=== PATIENT | male | born 1955 | race Caucasian/White ===

== ENCOUNTER 2017-08-23 17:06 | Emergency (ER) | payer OTHER ==
[2017-08-23 17:06] VITALS: BMI 29.7
[2017-08-23 17:30] VITALS: BP 111/71; PULSE 75; RESP 16; TEMP 98.5; O2SAT 95
[2017-08-23 19:01] LABS: BASO # 0.1 K/uL (0.0-0.2); BASO % 1.1 % (0.0-2.0); EOS # 0.2 K/uL (0.0-0.7); EOS % 2.2 % (0.0-4.0); HEMOGLOBIN 13.5 g/dL (12.0-18.0); LYMPH # 2.4 K/uL (1.0-4.3); MEAN CELL VOLUME 85.4 fl (80.0-94.0); MEAN CORPUSCULAR HEMOGLOBIN 29.4 pg (27.0-31.0); MEAN CORPUSCULAR HGB CONC 34.5 g/dL (33.0-37.0); MEAN PLATELET VOLUME 9.4 fl (7.2-11.7); MONO # 0.6 K/uL (0.0-0.8); MONO % 8.3 % (0.0-10.0); NEUT % 55.4 % (50.0-75.0); RBC 4.57 Mil/uL (4.40-5.90); RED CELL DISTRIBUTION WIDTH 13.2 % (11.5-14.5); WHITE BLOOD COUNT 7.3 K/uL (4.8-10.8)
[2017-08-23 19:19] LABS: ALBUMIN 3.4 g/dL (3.5-5.0); ALT/SGPT 26 U/L (21-72); AST/SGOT 37 U/L (17-59); BLOOD UREA NITROGEN 27 mg/dl (9-20); CALCIUM 8.2 mg/dL (8.4-10.2); GFR AFRICAN-AMERICAN > 60; GFR NON-AFRICAN AMERICAN > 60
--- NOTE | 2017-08-23 19:50 | ED PDOC ---
Lower Extremity Pain/Injury Time Seen by Provider: 08/23/17 17:40 Chief Complaint (Nursing): Lower Extremity Problem/Injury Chief Complaint (Provider): Right Leg Pain History Per: Patient History/Exam Limitations: no limitations Onset/Duration Of Symptoms: Other (1 month) Additional Complaint(s): 61 year old male presents to the ED complaining of tender skin abnormality of right lateral heel onset 1 month. Patient was unable to walk yesterday which is why he came today. He took ibuprofen and felt better this morning. Pt states he noticed yellow drainage from the site yesterday. PMD: No Family Provider Pt denies PMHx but has not seen PMD in 4 years. Past Medical History Reviewed: Historical Data, Nursing Documentation, Vital Signs Vital Signs: Last Vital Signs Temp 98.5 F 08/23/17 17:22 Pulse 75 08/23/17 17:22 Resp 16 08/23/17 17:22 BP 111/71 08/23/17 17:22 Pulse Ox 95 08/23/17 17:22 - Medical History PMH: No Chronic Diseases Denies: Chronic Kidney Disease - Surgical History Surgical History: No Surg Hx - Family History Family History: States: Hypertension - Living Arrangements Living Arrangements: With Family - Social History Current smoker - smoking cessation education provided: No - Home Medications Home Medications: Ambulatory Orders Medication Instructions Recorded Aspirin 81 mg PO DAILY 02/18/14 Sulfamethoxazole/Trimethoprim 1 each PO BID #20 tablet 08/23/17 [Bactrim 400-80 mg Tablet] - Allergies Allergies/Adverse Reactions: Allergies Allergy/AdvReac Type Severity Reaction Status Date / Time Penicillins Allergy RASH Verified 08/23/17 17:30 Review of Systems ROS Statement: Except As Marked, All Systems Reviewed And Found Negative Musculoskeletal: Positive for: Foot Pain (right) Physical Exam - Reviewed Nursing Documentation Reviewed: Yes Vital Signs Reviewed: Yes - Physical Exam Appears: Positive for: Non-toxic Head Exam: Positive for: ATRAUMATIC, NORMAL INSPECTION, NORMOCEPHALIC Skin: Positive for: Normal Color, Warm, Dry Eye Exam: Positive for: Normal appearance Neck: Positive for: Normal Respiratory: Negative for: Decreased Breath Sounds Extremity: Positive for: Normal ROM, Tenderness (plaque to lateral superior calcaneus, indurated to palpation). Negative for: Other (drainage) Neurologic/Psych: Positive for: Alert, Oriented (x3) - Laboratory Results Result Diagrams: 08/23/17 18:50 08/23/17 18:50 - ECG O2 Sat by Pulse Oximetry: 95 (RA) Pulse Ox Interpretation: Normal Medical Decision Making Medical Decision Making: Time: 1814 Initial Plan: --CMP --CBC w/ Differential --Right Foot 3 Views labs and x-ray present no abnormalities. Patient will be discharged and follow- up at clinic. Scribe Attestation: Documented by Venita Campos, acting as a scribe for Elvira Henry PA-C Provider Scribe Attestation: All medical record entries made by the Scribe were at my direction and personally dictated by me. I have reviewed the chart and agree that the record accurately reflects my personal performance of the history, physical exam, medical decision making, and the department course for this patient. I have also personally directed, reviewed, and agree with the discharge instructions and disposition. Disposition - Clinical Impression Clinical Impression: Abnormality, skin - Patient ED Disposition Is Patient to be Admitted: No - Disposition Referrals: [facility] [Outside] Podiatry Clinic [Outside] Disposition: Routine/Home Disposition Time: 20:20 Condition: STABLE Additional Instructions: Please follow-up with the [facility] and Podiatry clinic for further evaluation. Prescriptions: Sulfamethoxazole/Trimethoprim [Bactrim 400-80 mg Tablet] 1 each PO BID #20 tablet Instructions: Wound Care (DC) Forms: [employer] (Guatemalan), [facility] ED School/Work Excuse
--- NOTE | 2017-08-24 08:30 | RAD ---
PROCEDURE: Right Foot Radiographs. HISTORY: lesion, right later heel COMPARISON: None. FINDINGS: BONES: No acute fracture. Bipartite medial sesamoid. Tiny os peroneum. JOINTS: Unremarkable. SOFT TISSUES: Normal. OTHER FINDINGS: Inferior plantar calcaneal spur. IMPRESSION: No demonstrated fracture or dislocation.
== END 2017-08-23 20:37 | disposition home or self-care (01) ==
LOC: H.ER 17:06
DX: M79.604 Pain in right leg (principal); Z79.82 Long term (current) use of aspirin; Z88.0 Allergy status to penicillin

== ENCOUNTER 2017-11-08 10:21 | Emergency (ER) | payer OTHER ==
[2017-11-08 10:27] VITALS: TEMP 97.1
[2017-11-08 10:28] VITALS: BMI 32.3
[2017-11-08] MEDS ORDERED: Tdap Vaccine 0.5 ml Vial (10-64 yrs) IM ONE ×2 (11:12→11:24)
[2017-11-08 11:32] LABS: BASO % 0.3 % (0.0-2.0); EOS # 0.2 K/uL (0.0-0.7); EOS % 2.4 % (0.0-4.0); HEMOGLOBIN 14.4 g/dL (12.0-18.0); LYMPH # 2.2 K/uL (1.0-4.3); LYMPH % 34.3 % (20.0-40.0); MEAN CELL VOLUME 85.2 fl (80.0-94.0); MEAN CORPUSCULAR HEMOGLOBIN 29.3 pg (27.0-31.0); MEAN CORPUSCULAR HGB CONC 34.3 g/dL (33.0-37.0); MEAN PLATELET VOLUME 9.1 fl (7.2-11.7); MONO # 0.5 K/uL (0.0-0.8); MONO % 8.4 % (0.0-10.0); NEUT # 3.4 K/uL (1.8-7.0); NEUT % 54.6 % (50.0-75.0); NRBC % 0.1 % (0.0-0.0); RBC 4.91 Mil/uL (4.40-5.90); RED CELL DISTRIBUTION WIDTH 13.3 % (11.5-14.5); WHITE BLOOD COUNT 6.3 K/uL (4.8-10.8)
[2017-11-08 11:38] LABS: PROTHROMBIN TIME 10.8 Seconds (9.8-13.1)
[2017-11-08 11:41] LABS: PARTIAL THROMBOPLASTIN TIME 32.6 Seconds (25.6-37.1)
[2017-11-08 11:43] LABS: ALB/GLOB RATIO 1.1 (1.0-2.1); ALBUMIN 4.2 g/dL (3.5-5.0); ALT/SGPT 13 U/L (21-72); AST/SGOT 24 U/L (17-59); BLOOD UREA NITROGEN 28 mg/dl (9-20); CALCIUM 8.6 mg/dL (8.4-10.2); GFR AFRICAN-AMERICAN > 60; GFR NON-AFRICAN AMERICAN > 60
[2017-11-08 11:51] LABS: B-TYPE NATRIURETIC PEPTIDE 60.9 pg/ml (0-900)
--- NOTE | 2017-11-08 12:18 | ED PDOC ---
Lower Extremity Pain/Injury Time Seen by Provider: 11/08/17 10:44 Chief Complaint (Nursing): Pain, Chronic Chief Complaint (Provider): Right calf and foot pain History Per: Patient History/Exam Limitations: no limitations Onset/Duration Of Symptoms: Days (x1 month) Current Symptoms Are (Timing): Still Present Additional Complaint(s): 61yo male, comes to ER for evaluation of pain to his right ankle and calf x 1 month. He states he had a vein ligation to his right lower extremity 5 years ago and is unsure if his current symptoms are related to that. He reports some swelling to the right lower extremity, but denies any fever, chills, trauma or injuries. He also denies any prolonged immobilities, chest pain, shortness of breath, cough or abdominal pain. He states his tetanus is not up to date. PMD: None provided Past Medical History Reviewed: Historical Data, Nursing Documentation, Vital Signs Vital Signs: Last Vital Signs Temp 97.1 F L 11/08/17 10:26 Pulse 64 11/08/17 10:26 Resp BP 137/81 11/08/17 10:26 Pulse Ox 98 11/08/17 10:26 - Medical History PMH: No Chronic Diseases - Surgical History Other surgeries: vein ligation RLE - Family History Family History: States: Hypertension - Social History Current smoker - smoking cessation education provided: No Alcohol: None Drugs: Denies - Immunization History Hx Tetanus Toxoid Vaccination: No - Home Medications Home Medications: Ambulatory Orders Medication Instructions Recorded Aspirin 81 mg PO DAILY 02/18/14 Sulfamethoxazole/Trimethoprim 1 each PO BID #20 tablet 08/23/17 [Bactrim 400-80 mg Tablet] Levofloxacin [Levaquin] 500 mg PO DAILY #4 tablet 11/08/17 Silver Sulfadiazine 1% [Silver 1 applic TOP BID #1 jar 11/08/17 Sulfadiazine] - Allergies Allergies/Adverse Reactions: Allergies Allergy/AdvReac Type Severity Reaction Status Date / Time Penicillins Allergy RASH Verified 08/23/17 17:30 Review of Systems ROS Statement: Except As Marked, All Systems Reviewed And Found Negative Constitutional: Negative for: Fever, Chills Cardiovascular: Negative for: Chest Pain Respiratory: Negative for: Cough, Shortness of Breath Musculoskeletal: Positive for: Leg Pain (right ankle and calf pain) Neurological: Negative for: Weakness, Numbness Physical Exam - Reviewed Nursing Documentation Reviewed: Yes Vital Signs Reviewed: Yes - Physical Exam Appears: Positive for: Well, Non-toxic, No Acute Distress Head Exam: Positive for: ATRAUMATIC, NORMOCEPHALIC Skin: Positive for: Warm, Dry Eye Exam: Positive for: EOMI ENT: Positive for: Other (Mucus membranes moist. Airway patent, (-) stridor.) Neck: Positive for: Painless ROM, Supple Cardiovascular/Chest: Positive for: Regular Rate, Rhythm. Negative for: Tachycardia Respiratory: Positive for: Normal Breath Sounds. Negative for: Decreased Breath Sounds, Accessory Muscle Use, Crackles, Rales, Wheezing, Respiratory Distress Pulses-Dorsalis Pedis (L): 2+ Pulses-Dorsalis Pedis (R): 2+ Pulses-Post. Tibialis (L): 2+ Pulses-Post. Tibialis (R): 2+ Back: Negative for: Vertebral Tenderness Extremity: Positive for: Normal ROM (FROM right knee, ankle, and foot), Pedal Edema (2+ pitting edema to right ankle and foot), Calf Tenderness (right calf tenderness (-)warmth), Capillary Refill (intact), Other (+ venous stasis changes right lower extremity; [id number] pressure ulcer to lateral right ankle, inferior to lateral malleolus with mild tenderness, no erythema or drainage; 1x1cm scabbed lesion to medical right mid calf.). Negative for: Deformity Neurologic/Psych: Positive for: Alert, Oriented (x3), Gait (ambulatory in ER). Negative for: Aphasia, Facial Droop - Laboratory Results Result Diagrams: 11/08/17 11:20 11/08/17 11:20 - ECG O2 Sat by Pulse Oximetry: 98 (RA) Pulse Ox Interpretation: Normal Medical Decision Making Medical Decision Making: Impression: Right lower extremity pain, r/o DVT Plan: -- Labs -- IV access -- Toradol 30mg IVP -- Tetanus booster IM -- US Duplex RLE -- Podiatry consult 1220 Labs reviewed. CBC unremarkable. H&H stable. No elevation of WBCs. Coag profile WNL. BNP: 60.9. CMP grossly normal. Pending podiatry consult, discussed with resident Yareli Huynh, who recommends U/S evaluation. Patient resting comfortably on re-evaluation with no additional complaints. 1339 U/S reviewed, radiology report follows US RLE FINDINGS: COMMON FEMORAL VEIN: Unremarkable. SUPERFICIAL FEMORAL VEIN: Unremarkable. POPLITEAL VEIN: Unremarkable. POSTERIOR TIBIAL VEIN: Unremarkable. OTHER FINDINGS: Several of right-sided inguinal lymph nodes are present. IMPRESSION: No evidence of deep venous thrombosis in the right lower extremity. 1350 Podiatry at bedside. See consult note. 1420 Tylenol 650mg PO ordered for additional pain control. Pending podiatry disposition. 1540 Per discussion with podiatry, silvadene dressings to be placed to wounds. Patient to be treated with Levaquin PO QD x5 days. Levaquin PO and Silvadene topical ordered. Patient to follow up in podiatry clinic. On re-evaluation, patient reports improvement of symptoms. On exam, patient remains AAOx3, in no acute distress. Lungs clear to auscultation, cardiac RRR, repeat neuro exam shows no focal findings. VSS, stable for discharge. Lab/Diagnostic results d/w the patient in great detail. Diagnosis of acute ankle and calf pain, PVD, cellulitis d/w the patient. Based on history, exam and diagnostic results, plan will be for outpatient follow up. Patient instructed to follow-up with pmd / referral provided / the clinic in 1- 2 days without fail. Advised to take medication as prescribed. Return to the emergency room at any time for any new or worsening symptoms. Patient states he fully agrees with and understands discharge instructions. States that he agrees with the plan and disposition. Verbalized and repeated discharge instructions and plan. I have given the patient opportunity to ask any additional questions. Scribe Attestation: Documented by Esperanza Triana, acting as a scribe for JAHAIRA Carter. Provider Scribe Attestation: All medical record entries made by the Scribe were at my direction and personally dictated by me. I have reviewed the chart and agree that the record accurately reflects my personal performance of the history, physical exam, medical decision making, and the department course for this patient. I have also personally directed, reviewed, and agree with the discharge instructions and disposition. Disposition - Clinical Impression Clinical Impression: PVD (peripheral vascular disease), Ankle pain, Calf pain, Ulcer of lower extremity, Cellulitis - Patient ED Disposition Is Patient to be Admitted: No Counseled Patient/Family Regarding: Studies Performed, Diagnosis, Need For Followup, Rx Given - Disposition Referrals: Podiatry Clinic [Outside] Disposition: Routine/Home Disposition Time: 16:03 Condition: STABLE Additional Instructions: FOLLOW UP WITH PODIATRY. TAKE ANTIBIOTICS UNTIL COMPLETE The emergency medical care you received today was directed at your acute symptoms. If you were prescribed any medication, please fill it and take as directed. It may take several days for your symptoms to resolve. Return to the Emergency Department if your symptoms worsen, do not improve, or if you have any other problems. Please contact your doctor in 2 days for re-evaluation and follow up / or call one of the physicians/clinics you have been referred to that are listed on the Patient Visit Information form that is included in your discharge packet. Bring any paperwork you were given at discharge with you along with any medications you are taking to your follow up visit. Our treatment cannot replace ongoing medical care by a primary care provider (PCP) outside of the emergency department. Prescriptions: Levofloxacin [Levaquin] 500 mg PO DAILY #4 tablet Silver Sulfadiazine 1% [Silver Sulfadiazine] 1 applic TOP BID #1 jar Instructions: Peripheral Vascular (Arterial) Disease (DC), Wound Care, Cellulitis and Erysipelas (Skin Infections) Forms: [employer] (Maori), [facility] ED School/Work Excuse Print Language: CHINESE - POA Present On Arrival: None Results - Lab Results Lab Results: 11/08/17 11/08/17 11/08/17 11:25 11:20 11:20 WBC 6.3 RBC 4.91 Hgb 14.4 Hct 41.8 MCV 85.2 MCH 29.3 MCHC 34.3 RDW 13.3 Plt Count 155 MPV 9.1 Neut % (Auto) 54.6 Lymph % (Auto) 34.3 Hinds % (Auto) 8.4 Eos % (Auto) 2.4 Baso % (Auto) 0.3 Neut # (Auto) 3.4 Lymph # (Auto) 2.2 Hind[place] # (Auto) 0.5 Eos # (Auto) 0.2 Baso # (Auto) 0.0 PT 10.8 INR 1.0 APTT 32.6 Sodium Potassium Chloride Carbon Dioxide Anion Gap BUN Creatinine Est GFR ( Amer) Est GFR (Non-Af Amer) POC Glucose (mg/dL) 115 H Random Glucose Calcium Total Bilirubin AST ALT Alkaline Phosphatase NT-Pro-B Natriuret Pep Total Protein Albumin Globulin Albumin/Globulin Ratio 11/08/17 11:20 WBC RBC Hgb Hct MCV MCH MCHC RDW Plt Count MPV Neut % (Auto) Lymph % (Auto) Hind[place] % (Auto) Eos % (Auto) Baso % (Auto) Neut # (Auto) Lymph # (Auto) Hinds # (Auto) Eos # (Auto) Baso # (Auto) PT INR APTT Sodium 146 Potassium 4.3 Chloride 108 H Carbon Dioxide 29 Anion Gap 13 BUN 28 H Creatinine 0.7 L Est GFR ( Amer) > 60 Est GFR (Non-Af Amer) > 60 POC Glucose (mg/dL) Random Glucose 113 H Calcium 8.6 Total Bilirubin 0.9 AST 24 ALT 13 L D Alkaline Phosphatase 101 NT-Pro-B Natriuret Pep 60.9 Total Protein 8.0 Albumin 4.2 Globulin 3.7 Albumin/Globulin Ratio 1.1
--- NOTE | 2017-11-08 13:19 | US ---
Date of service: 11/08/2017 PROCEDURE: Right lower extremity venous duplex Doppler. HISTORY: edema, r/o dvt COMPARISON: None available. TECHNIQUE: Common femoral, superficial femoral, popliteal and posterior tibial veins were evaluated. Flow was assessed with color Doppler, compressibility, assessment of phasic flow and augmentation response. FINDINGS: COMMON FEMORAL VEIN: Unremarkable. SUPERFICIAL FEMORAL VEIN: Unremarkable. POPLITEAL VEIN: Unremarkable. POSTERIOR TIBIAL VEIN: Unremarkable. OTHER FINDINGS: Several of right-sided inguinal lymph nodes are present. IMPRESSION: No evidence of deep venous thrombosis in the right lower extremity.
--- NOTE | 2017-11-08 14:45 | CP.PCM.CON ---
History of Present Illness - History of Present Illness History of Present Illness: 61yo male patient, with no pertinent PMHx, seen and evaluated at bedside for right lower extremity pain. He states the pain started about a month ago, with the pain being worse at the top of his leg on the inside and outside of the ankle. The pain hasn't resolved and he denies taking any pain medication for the pain. He mentions that 5 years ago he had a vein surgery by a doctor at [facility]. He also notes that he had a previous ulceration and vein problems to his right leg a few years ago. He currently does not see a analytical technician and is not being treated for his lower leg lesions. He denies N/V/F/SOB/CP. Review of Systems - Review of Systems Review of Systems: As per HPI Past Patient History - Infectious Disease Hx of Infectious Diseases: None - Past Medical History & Family History Past Medical History?: Yes - Past Social History Smoking Status: Never Smoked - CARDIAC Hx Cardiac Disorders: No - PULMONARY Hx Respiratory Disorders: No - NEUROLOGICAL Hx Neurological Disorder: No - HEENT Hx HEENT Problems: No - RENAL Hx Chronic Kidney Disease: No - ENDOCRINE/METABOLIC Hx Endocrine Disorders: No - HEMATOLOGICAL/ONCOLOGICAL Hx Blood Disorders: No - INTEGUMENTARY Hx Dermatological Problems: No Other/Comment: chicken pox measles - MUSCULOSKELETAL/RHEUMATOLOGICAL Hx Musculoskeletal Disorders: No Hx Herniated Disk: No - GASTROINTESTINAL Hx Gastrointestinal Disorders: No - GENITOURINARY/GYNECOLOGICAL Hx Genitourinary Disorders: No - PSYCHIATRIC Hx Psychophysiologic Disorder: No Hx Substance Use: No - SURGICAL HISTORY Hx Surgeries: Yes Other/Comment: RT & LT LEG VAROCOSE CEIN S/L 5 YRS AGO - ANESTHESIA Hx Anesthesia: Yes Hx Anesthesia Reactions: No Hx Malignant Hyperthermia: No Meds Home Medications: Home Medication List Medication Instructions Recorded Confirmed Type Levofloxacin [Levaquin] 500 mg PO DAILY #4 tablet 11/08/17 Rx Silver Sulfadiazine 1% [Silver 1 applic TOP BID #1 jar 11/08/17 Rx Sulfadiazine] Allergies/Adverse Reactions: Allergies Allergy/AdvReac Type Severity Reaction Status Date / Time Penicillins Allergy RASH Verified 08/23/17 17:30 Physical Exam - Constitutional Appears: Well, Non-toxic, No Acute Distress - Head Exam Head Exam: ATRAUMATIC, NORMOCEPHALIC - Extremities Exam Additional comments: RLE focused exam: Vascular: DP/PT 2/4, CFT <3 seconds to all digits, +2 pitting edema noted to ankle and leg Ortho: Tenderness to palpation of proximal medial lesion and lesion located posterior to lateral malleolus. No tenderness to palpation upon calf compression Neuro:Gross and protective sensation intact Derm: Stable eschar noted to proximal medial leg; no open lesion, no drainage, no probe to bone, no tunneling, no undermining. Cellulitic border extending from lesion to anterior tibia. No streaking noted. Stable eschar posterior to lateral malleolus; No open lesion, no malodor, no drainage, no tunneling, no probe to bone, no clinical sign of infection. Hyperpigmentation noted to right medial leg secondary to previous ulceration. Multiple varicosities noted to leg circumfrentially - Neurological Exam Neurological exam: Alert, Oriented x3 - Psychiatric Exam Psychiatric exam: Normal Affect, Normal Mood Results - Vital Signs Recent Vital Signs: Last Vital Signs Temp 97.1 F L 11/08/17 10:26 Pulse 64 11/08/17 10:26 Resp BP 137/81 11/08/17 10:26 Pulse Ox 98 11/08/17 14:22 - Labs Result Diagrams: 11/08/17 11:20 11/08/17 11:20 Labs: Laboratory Results - last 24 hr 11/08/17 11/08/17 11/08/17 11:20 11:20 11:20 WBC 6.3 RBC 4.91 Hgb 14.4 Hct 41.8 MCV 85.2 MCH 29.3 MCHC 34.3 RDW 13.3 Plt Count 155 MPV 9.1 Neut % (Auto) 54.6 Lymph % (Auto) 34.3 [place] % (Auto) 8.4 Eos % (Auto) 2.4 Baso % (Auto) 0.3 Neut # (Auto) 3.4 Lymph # (Auto) 2.2 [place] # (Auto) 0.5 Eos # (Auto) 0.2 Baso # (Auto) 0.0 PT 10.8 INR 1.0 APTT 32.6 Sodium 146 Potassium 4.3 Chloride 108 H Carbon Dioxide 29 Anion Gap 13 BUN 28 H Creatinine 0.7 L Est GFR ( Amer) > 60 Est GFR (Non-Af Amer) > 60 POC Glucose (mg/dL) Random Glucose 113 H Calcium 8.6 Total Bilirubin 0.9 AST 24 ALT 13 L D Alkaline Phosphatase 101 NT-Pro-B Natriuret Pep 60.9 Total Protein 8.0 Albumin 4.2 Globulin 3.7 Albumin/Globulin Ratio 1.1 11/08/17 11:25 WBC RBC Hgb Hct MCV MCH MCHC RDW Plt Count MPV Neut % (Auto) Lymph % (Auto) [place] % (Auto) Eos % (Auto) Baso % (Auto) Neut # (Auto) Lymph # (Auto) [place] # (Auto) Eos # (Auto) Baso # (Auto) PT INR APTT Sodium Potassium Chloride Carbon Dioxide Anion Gap BUN Creatinine Est GFR ( Amer) Est GFR (Non-Af Amer) POC Glucose (mg/dL) 115 H Random Glucose Calcium Total Bilirubin AST ALT Alkaline Phosphatase NT-Pro-B Natriuret Pep Total Protein Albumin Globulin Albumin/Globulin Ratio Assessment & Plan - Assessment and Plan (Free Text) Assessment: 61yo male patient, with no pertinent PMHx, seen and evaluated at bedside for stable right lower extremity lesions and chronic venous insufficiency Plan: Patient seen and evaluated at bedside Discussed patient in detail with Dr. Mayfield Vitals, labs, and chart reviewed; afebrile, absent leukocytosis US Duplex; no evidence of deep venous thrombosis in the right lower extremity RX for Silvadene to be applied to eschars bilaterally Rx for Levoquin 500mg F/U in clinic for continued care Thank you for the consult. - Date & Time Date: 11/08/17 Time: 19:10
[2017-11-08] MEDS ORDERED: Silver Sulfadiazine 1% Cream (20 gm) TOP STA (15:35)
[2017-11-08] MEDS ORDERED: levoFLOXacin 500 MG TAB PO STA (16:02)
[2017-11-08] MEDS ORDERED: Silver Sulfadiazine 1% CREAM (50 gm) ONE (16:42)
[2017-11-08 18:45] VITALS: BP 130/80; PULSE 86
[2017-11-13 14:05] VITALS: O2SAT 98
== END 2017-11-08 17:10 | disposition home or self-care (01) ==
LOC: H.ER 10:21
DX: I73.9 Peripheral vascular disease, unspecified (principal); L97.519 Non-pressure chronic ulcer of other part of right foot with unspecified severity; M25.571 Pain in right ankle and joints of right foot; M79.661 Pain in right lower leg; Z23 Encounter for immunization
CPT/HCPCS: 80053; 82948; 83880; 85025; 85610; 85730; 90471; 90715; 93971; 96374; 99284; J1885

== ENCOUNTER 2018-04-30 19:42 | Emergency (ER) | payer SELFPAY ==
[2018-04-30 19:42] VITALS: BMI 32.2
[2018-04-30 20:49] VITALS: BP 118/77; PULSE 81; RESP 18; TEMP 97.9; O2SAT 97
[2018-04-30] MEDS ORDERED: Naproxen 500 MG TAB PO ONE ×2 (22:15→23:40)
--- NOTE | 2018-04-30 22:18 | ED PDOC ---
Lower Extremity Pain/Injury Time Seen by Provider: 04/30/18 22:06 Chief Complaint (Nursing): Lower Extremity Problem/Injury Chief Complaint (Provider): left ankle pain History Per: Patient History/Exam Limitations: no limitations Onset/Duration Of Symptoms: Days (1 month), Waxing/Waning Current Symptoms Are (Timing): Still Present Additional Complaint(s): 62 y/o male presents for evaluation of left ankle pain x 1 month. Patient states pain worse with weight-bearing and relieved with rest. Denies known trauma, numbness/weakness left lower extremity, calf pain/swelling, limitation of movement Past Medical History Reviewed: Historical Data, Nursing Documentation, Vital Signs Vital Signs: Last Vital Signs Temp 97.9 F 04/30/18 20:46 Pulse 81 04/30/18 20:46 Resp 18 04/30/18 20:46 BP 118/77 04/30/18 20:46 Pulse Ox 97 04/30/18 20:46 - Medical History PMH: Denies: HIV, Chronic Kidney Disease - Surgical History Other surgeries: varicose vein stripping b/l LE - Family History Family History: States: Unknown Family Hx, Hypertension - Immunization History Hx Tetanus Toxoid Vaccination: No Hx Influenza Vaccination: No Hx Pneumococcal Vaccination: No - Home Medications Home Medications: Ambulatory Orders Medication Instructions Recorded Aspirin [Ecotrin] 81 mg PO DAILY 12/22/17 - Allergies Allergies/Adverse Reactions: Allergies Allergy/AdvReac Type Severity Reaction Status Date / Time Penicillins Allergy RASH Verified 04/30/18 20:46 Review of Systems ROS Statement: Except As Marked, All Systems Reviewed And Found Negative Musculoskeletal: Positive for: Leg Pain (left ankle) Physical Exam - Reviewed Nursing Documentation Reviewed: Yes Vital Signs Reviewed: Yes - Physical Exam Appears: Positive for: Well, Non-toxic, No Acute Distress Head Exam: Positive for: ATRAUMATIC, NORMAL INSPECTION, NORMOCEPHALIC Skin: Positive for: Normal Color Pulses-Dorsalis Pedis (L): 2+ Pulses-Dorsalis Pedis (R): 2+ Pulses-Post. Tibialis (L): 2+ Pulses-Post. Tibialis (R): 2+ Extremity: Positive for: Normal ROM, Tenderness (anterior left ankle, left lateral malleolus without swelling/deformity. Pain with plantar flexion. Distal NV/motor intact) Neurologic/Psych: Positive for: Alert, Oriented (x3) - ECG O2 Sat by Pulse Oximetry: 97 - Other Rad left ankle xray X-Ray: Viewed By Me X-Ray Interpretation: no acute findings - Progress ED Course And Treament: -naproxen PO -left ankle xray Patient/daughter educated on findings, left ankle wrapped in GRECIA Advised RICE, NSAIDs Follow up podiatry Return precautions given Disposition - Clinical Impression Clinical Impression: Left ankle pain - Patient ED Disposition Is Patient to be Admitted: No Counseled Patient/Family Regarding: Studies Performed, Diagnosis, Need For Followup, Rx Given - Disposition Referrals: Podiatry Clinic [Outside] Disposition: Routine/Home Disposition Time: 23:41 Condition: IMPROVED Instructions: Joint Pain Forms: [employer] (Danish), [facility] ED School/Work Excuse Print Language: SERBIAN
--- NOTE | 2018-05-01 11:32 | RAD ---
Date of service: 04/30/2018 PROCEDURE: Left Ankle Radiographs. HISTORY: Pain. No history of recent/ related trauma provided COMPARISON: None available. FINDINGS: BONES: Plantar calcaneal spur. No acute fracture. JOINTS: Normal. No osteoarthritis. Ankle mortise maintained. Talar dome intact SOFT TISSUES: Posterior soft tissue swelling. OTHER FINDINGS: None. IMPRESSION: Soft tissue swelling without acute articular or osseous abnormality.
== END 2018-05-01 00:11 | disposition home or self-care (01) ==
LOC: H.ER 19:42
DX: M25.572 Pain in left ankle and joints of left foot (principal); Z88.0 Allergy status to penicillin

== ENCOUNTER 2018-08-10 10:18 | Emergency (ER) | payer SELFPAY ==
[2018-08-10 10:18] VITALS: BMI 32.2
[2018-08-10 10:30] VITALS: BP 111/71; PULSE 73; RESP 18; TEMP 98.7; O2SAT 95
--- NOTE | 2018-08-10 11:09 | ED PDOC ---
Lower Extremity Pain/Injury Time Seen by Provider: 08/10/18 10:31 Chief Complaint (Nursing): Lower Extremity Problem/Injury History Per: Patient Additional Complaint(s): Pt. was advised to come to ED by podiatry clinic. Pt. had cast removed from the L leg due to a fracture on the foot and had cast on for 6 weeks. Two weeks ago cast was removed and pt. developed pain in the L calf. Denies chest pain, SOB, palpitations, hx of DVT or PE, new trauma, numbness, tingling, weakness. Past Medical History Reviewed: Historical Data, Nursing Documentation, Vital Signs Vital Signs: Last Vital Signs Temp 98.7 F 08/10/18 10:30 Pulse 73 08/10/18 10:30 Resp 18 08/10/18 10:30 BP 111/71 08/10/18 10:30 Pulse Ox 95 08/10/18 10:30 Primary Care Provider: Aundrea Joe - Medical History PMH: Denies: HIV, Chronic Kidney Disease - Family History Family History: States: Hypertension - Immunization History Hx Tetanus Toxoid Vaccination: No Hx Influenza Vaccination: No Hx Pneumococcal Vaccination: No - Home Medications Home Medications: Ambulatory Orders Medication Instructions Recorded Aspirin [Ecotrin] 81 mg PO DAILY 12/22/17 - Allergies Allergies/Adverse Reactions: Allergies Allergy/AdvReac Type Severity Reaction Status Date / Time Penicillins Allergy RASH Verified 08/10/18 10:31 Review of Systems ROS Statement: Except As Marked, All Systems Reviewed And Found Negative Musculoskeletal: Positive for: Leg Pain Physical Exam - Physical Exam Appears: Positive for: Well, Non-toxic, No Acute Distress Skin: Positive for: Normal Color, Warm. Negative for: Rash Eye Exam: Positive for: Normal appearance Cardiovascular/Chest: Positive for: Regular Rate, Rhythm. Negative for: Tachycardia Respiratory: Positive for: Normal Breath Sounds. Negative for: Respiratory Distress Extremity: Positive for: Calf Tenderness (L calf tenderness with swelling without warmth or erythema), Other (negative Kang's sign b/l) Neurological/Psych: Positive for: Awake, Alert, Oriented (x3) - ECG O2 Sat by Pulse Oximetry: 95 - Progress ED Course And Treament: Duplex L lower extremity vein: no DVT as per radiology report. Results d/w Dr. Leach, podiatry resident, and states pt. can be dc'd. States pt. has a scheduled appointment on Monday. Pt. informed of results and states he has an appointment with the podiatry clinic on Monday. Advised to f/u as scheduled. Disposition - Clinical Impression Clinical Impression: Leg swelling - Patient ED Disposition Is Patient to be Admitted: No - Disposition Referrals: Podiatry Clinic [Outside] Disposition: Routine/Home Disposition Time: 12:00 Condition: STABLE Additional Instructions: FOLLOW UP WITH PODIATRY CLINIC ON MONDAY PREVIOUSLY SCHEDULED RETURN TO ED IMMEDIATELY IF SYMPTOMS WORSEN CLAUS SHIN, thank you for letting us take care of you today. Your provider was Cecelia Lr MD and you were treated for SENT FROM POD, LT LEG PAIN. The emergency medical care you received today was directed at your acute symptoms. If you were prescribed any medication, please fill it and take as directed. It may take several days for your symptoms to resolve. Return to the Emergency Department if your symptoms worsen, do not improve, or if you have any other problems. Please contact your doctor or call one of the physicians/clinics you have been referred to that are listed on the Patient Visit Information form that is included in your discharge packet. Bring any paperwork you were given at discharge with you along with any medications you are taking to your follow up visit. Our treatment cannot replace ongoing medical care by a primary care provider outside of the emergency department. Thank you for allowing the [facility] team to be part of your care today. If you had an X-Ray or CT scan: A Radiologist will review the ED reading if any change in treatment is needed we will contact you. If you had a blood, urine, or wound culture: It will take several days for the results, if any change in treatment is needed we will contact you. If you had an STI test: It will take 48 hours for the results. Please call after 1 week if you have not heard back. Instructions: Dependent Edema (DC) Forms: [employer] (Urdu), [facility] ED School/Work Excuse Print Language: COLOMBIAN
--- NOTE | 2018-08-10 12:58 | US ---
Date of service: 08/10/2018 HISTORY: pain and swelling. PRIORS: None. FINDINGS: 2-D, color and duplex Doppler analysis of the lower extremity venous circulation using routine protocol from the femoral veins through the popliteal veins. Post tibial vein appears patent as well. Venous compressibility: Normal. Flow and augmentation patterns: Normal. Visualized veins upper third of calf: Normal. Valdes cyst: None. IMPRESSION: No sonographic or Doppler evidence for DVT in left lower extremity.
== END 2018-08-10 13:36 | disposition home or self-care (01) ==
LOC: H.ER 10:18
DX: M79.89 Other specified soft tissue disorders (principal)